=== PATIENT | female | born 1950 | race Caucasian/White ===

== ENCOUNTER → 2017-05-31 | Outpatient (CLI) | payer OTHER ==
[~2017-05-31] MED LIST: ATRIN6 NAE; ATV1 PO; BUTACAP36 PO; THY/30 PO
== END | disposition home or self-care (01) ==
LOC: C.PATHSPEC 17:44
PROVIDERS: ATTEND Plastic Surgery
DX: L98.9 Disorder of the skin and subcutaneous tissue, unspecified (principal)